=== PATIENT | female | born 1975 ===

== ENCOUNTER 2023-12-13 17:56 | Emergency (ER) | payer SELFPAY ==
[~2023-12-13] VITALS: Ht 157.5 cm; Wt 54.4 kg
[2023-12-13] MEDS ORDERED: IBUPROFEN 600 MG/TAB PO ONE (18:00)
[2023-12-13] MEDS ORDERED: Diph, Acellular Pertussis, Tet 0.5 ML/VIAL (Tdap) SDV IM ONE (18:00)
[2023-12-13 18:31] VITALS: BP 113/67
[2023-12-13 18:45] VITALS: BP 110/87
[2023-12-13 19:01] VITALS: BP 119/70
[2023-12-13 19:15] VITALS: BP 113/76
[2023-12-13] MEDS ORDERED: IBUPAK600 MG PO (19:28)
[2023-12-13 19:30] VITALS: BP 115/80
[2023-12-13 19:37] VITALS: BP 115/80
== END 2023-12-13 19:45 | disposition home or self-care (01) | DRG 605 ==
LOC: ED 17:56
DX: S50.312A Abrasion of left elbow, initial encounter (principal); S70.212A Abrasion, left hip, initial encounter; S80.212A Abrasion, left knee, initial encounter; Y08.89XA Assault by other specified means, initial encounter